=== PATIENT | female | born 1970 | race Caucasian/White ===

== ENCOUNTER 2021-02-20 10:28 | Inpatient (IN) | payer MEDICAID ==
[~2021-02-20] VITALS: Ht 160 cm; Wt 61.2 kg
--- NOTE | 2021-02-20 10:40 | NUR ---
[id number] HOME C/O LOWER BACK PAIN X 3 DAYS S/P LIFTING GROCERIES. PATIENT A/OX4, BREATHING EVEN AND UNLABORED, LYING FLAT IN BED. PATIENT C/O NOT ABLE TO MOVE HER BLE.
[2021-02-20] MEDS ORDERED: ONDANSETRON HCL/PF 4 MG/2 ML VIAL ONE (10:46)
[2021-02-20] MEDS ORDERED: KETOROLAC TROMETHAMINE 15 MG/ML VIAL ONE (10:46)
[2021-02-20] MEDS ORDERED: DEXAMETHASONE SOD PHOSPHATE 10 MG/ML VIAL ONE (10:46)
[2021-02-20] MEDS ORDERED: MORPHINE SULFATE INJ 2 MG/ML DISP.SYRIN ONE (10:47)
[2021-02-20] MEDS ORDERED: KETOROLAC TROMETHAMINE INJ 30 MG/ML VIAL IV ONE (11:00)
[2021-02-20] MEDS ORDERED: MORPHINE SULFATE INJ 2 MG/ML DISP.SYRIN IV ONE (11:00)
[2021-02-20] MEDS ORDERED: ONDANSETRON HCL/PF - ER 4 MG/2 ML VIAL IV ONE (11:00)
[2021-02-20] MEDS ORDERED: DEXAMETHASONE SOD PHOSPHATE 10 MG/ML VIAL IV ONE (11:00)
--- NOTE | 2021-02-20 11:00 | NUR ---
PATIENT ASLEEP, RESTING IN BED.
--- NOTE | 2021-02-20 12:33 | NUR ---
PATIENT IS ABLE TO MOVE HER BLE, HOWEVER WHEN ASKED TO SIT UP FROM BED, PATIENT STS SHE COULDNT DUE TO PAIN. INFORMED DR. DEL TORO.
[2021-02-20] MEDS ORDERED: ACETAMINOPHEN ES 500 MG TABLET ONE (12:40)
--- NOTE | 2021-02-20 12:57 | NUR ---
COVID SWAB SENT.
[2021-02-20] MEDS ORDERED: ACETAMINOPHEN ES 500 MG TABLET PO ONE (13:00)
--- NOTE | 2021-02-20 13:30 | NUR ---
negative covid per lab
--- NOTE | 2021-02-20 13:30 | NUR ---
CALLED NURSING SUP FOR M/S BED.
--- NOTE | 2021-02-20 13:40 | NUR ---
wool and pelt grader at bedside for xray.
--- NOTE | 2021-02-20 14:15 | NUR ---
room 309-1
--- NOTE | 2021-02-20 14:24 | NUR ---
REPORT GIVEN TO IVIS CRAIG FOR ROCKY.
--- NOTE | 2021-02-20 15:35 | NUR ---
MS METALSMITH HELPER NOTE RECEIVED PATIENT VIA Tile[employer]. PATIENT IS A/O X4. PATIENT IS BREATHING EVENLY AND NONLABORED, STABLE ON ROOM AIR. PATIENT'S VITALS ARE BP 102/50 HR 68, TEMP 97.6, RR 18 O2 SAT @ 100. PATIENT HAS IV ACCESS ON THE LAC #20 GAUGE. PATIENT'S SKIN IS WARM CLEAN AND DRY. PATIENT HAS NO WEAKNESS NOTED IN THE UPPER AND LOWER EXTREMITY, JUST SEVERE BACK PAIN AT THIS TIME. WILL NOTIFY MD. PATIENT WAS ORIENTED TO THE ROOM AND HOW TO USE THE CALL LIGHT. SAFETY MEASURES ARE IN PLACE, BED LOW LOCKED, CALL LIGHT WITHIN REACH. WILL CONTINUE TO MONITOR.
[2021-02-20] MEDS ORDERED: ACETAMINOPHEN 325 MG TABLET PO PRN (16:00)
[2021-02-20] MEDS ORDERED: MORPHINE SULFATE INJ 2 MG/ML DISP.SYRIN IV PRN (16:00)
[2021-02-20] MEDS ORDERED: MAG HYDROX/AL HYDROX/SIMETH 30 ML UDC PO PRN (16:00)
[2021-02-20] MEDS ORDERED: ONDANSETRON HCL/PF 4 MG/2 ML VIAL IVP PRN (16:00)
[2021-02-20] MEDS ORDERED: MAGNESIUM HYDROXIDE 30 ML UDC PO PRN (16:00)
[2021-02-20] MEDS ORDERED: Z GUARD REMEDY 2 OZ OINT TP PRN (16:00)
[2021-02-20] MEDS ORDERED: ZOLPIDEM TARTRATE 5 MG TABLET PO PRN (16:00)
--- NOTE | 2021-02-20 18:45 | NUR ---
RN NOTE PATIENT COMPLAINED OF BACK PAIN 02/21. PATIENT ASKED FOR PRN PAIN MEDICATION. WILL GIVEN PAIN MEDICATION ORDERED.
[2021-02-20] MEDS: HYDROCODONE/APAP 5/325MG TABLET PO PRN (18:49)
--- NOTE | 2021-02-20 18:59 | NUR ---
MS RN CLOSING NOTE PATIENT RESTING IN BED. PATIENT IS A/O X4. PATIENT IS BREATHING EVENLY AND NONLABORED, STABLE ON ROOM AIR. PATIENT HAS IV ACCESS ON THE LAC #20 GAUGE. PATIENT'S SKIN IS WARM CLEAN AND DRY. PATIENT COMPLAINS OF SOME BACK PAIN, LAST PAIN MEDICATION GIVEN @ 1845, NORCO. SAFETY MEASURES ARE IN PLACE, BED LOW LOCKED, CALL LIGHT WITHIN REACH. WILL ENDORSE TO ONCOMING SHIFT
--- NOTE | 2021-02-20 19:43 | NUR ---
MS/RN OPENING NOTE RECEIVED PATIENT RESTING IN BED. AWAKE, ALERT AND ORIENTED X 4. ABLE TO MAKE NEEDS KNOWN. NO COMPLAINTS OF PAIN AT THIS TIME. CONTINUES ON ROOM AIR WITH NO S/SX OF RESPIRATORY DISTRESS NOTED. IV ACCESS TO LEFT AC #20G INTACT, PATENT AND SALINE LOCKED. CALL LIGHT WITHIN REACH. ASPIRATION, FALL AND SAFETY PRECAUTIONS MAINTAINED. WILL CONTINUE TO MONITOR.
[2021-02-20 20:00] VITALS: BP 116/47
--- NOTE | 2021-02-20 20:12 | NUR ---
MS/RN NOTE PATIENT WITH C/O BURNING WHEN URINATING. NOTIFIED HEAD OF RESEARCH & INSIGHTS MD WEEKS WITH NEW ORDER FOR U/A AND U/C VIA CLEAN CATCH. ORDERS INPUTTED AND CARRIED OUT.
--- NOTE | 2021-02-20 22:00 | NUR ---
MS/RN NOTE URINE COLLECTED VIA CLEAN CATCH AND SENT TO LAB.
[2021-02-21 01:05] LABS: BILIRUBIN,URINE NEGATIVE (NEGATIVE); COLOR,URINE YELLOW (YELLOW); LEUKOCYTE ESTERASE ,URINE NEGATIVE (NEGATIVE); NITRITE, URINE NEGATIVE (NEGATIVE); PH,URINE 5.5 (5.0-8.0); PROTEIN,URINE NEGATIVE (NEGATIVE); UGLUCOSE >=1000 mg/dL (NEGATIVE); UROBILINOGEN,URINE 0.2 EU/dL (0.2)
[2021-02-21 01:19] LABS: BACTERIA,URINE None seen /HPF (None Seen); RBC,URINE 0-2 /HPF (0-2); WBC,URINE 0-2 /HPF (0-3)
[2021-02-21 01:20] LABS: SQUAMOUS EPITHELIAL CELL,UR Moderate /HPF (None Seen); URIC ACID CRYSTALS,URINE Many /HPF (None Seen); URINE AMORPHOUS URATE Many /HPF (None Seen)
--- NOTE | 2021-02-21 06:00 | NUR ---
MS/RN CLOSING NOTE PATIENT CURRENTLY SLEEPING IN BED. ALERT AND ORIENTED X 4. ABLE TO MAKE NEEDS KNOWN. NO COMPLAINTS OF PAIN AT THIS TIME. CONTINUES ON ROOM AIR WITH NO S/SX OF RESPIRATORY DISTRESS NOTED. IV ACCESS TO LEFT AC #20G INTACT, PATENT AND SALINE LOCKED. CALL LIGHT WITHIN REACH. ASPIRATION, FALL AND SAFETY PRECAUTIONS MAINTAINED. WILL ENDORSE PLAN OF CARE TO ONCOMING SHIFT.
[2021-02-21 06:01] LABS: BASOPHILS % (AUTO) 0.2 % (0.0-2.0); EOSINOPHILS % (AUTO) 0.1 % (0.0-6.0); HEMATOCRIT 41 % (33-45); HEMOGLOBIN 12.9 g/dL (11.5-14.8); LYMPHOCYTES # (AUTO) 1.5 /CMM (0.8-4.8); LYMPHOCYTES % (AUTO) 10.6 % (20.0-44.0); MEAN CORPUSCULAR HGB CONC 32 g/dl (31.0-36.0); MEAN CORPUSCULAR VOLUME 74 fL (82-100); MONOCYTES # (AUTO) 0.9 /CMM (0.1-1.30); MONOCYTES % (AUTO) 6.4 % (2.0-12.0); NEUTROPHILS # (AUTO) 11.6 /CMM (1.8-8.9); NEUTROPHILS % (AUTO) 82.7 % (43.0-81.0); PLATELET COUNT (AUTO) 263 /CMM (150-450); RED BLOOD CELL COUNT(AUTO) 5.47 MIL/uL (4.0-5.2)
[2021-02-21 06:25] LABS: CALCIUM, SERUM 9.2 mg/dL (8.5-10.1); CREATININE 0.4 mg/dL (0.6-1.3); PHOSPHORUS 3.6 mg/dL (2.5-4.9); POTASSIUM 4.3 mmol/L (3.5-5.1)
--- NOTE | 2021-02-21 07:10 | NUR ---
MS RN OPENING NOTE PATIENT ON BED AWAKE, ALERT AND ORIENTED X 4. PATIENT WITH REGULAR AND UNLABORED BREATHING, WITH NO SIGNS OF DISTRESS. ON MODERATE TO HIGH BACK REST. PATIENT WITH IV ACCESS ON THE LEFT AC G#20 ON SALINE LOCK, PATENT AND INTACT. PATIENT AWAITING DR. CHO. FOR PAIN MANAGEMENT AND FOR PT EVALUATION. COMFORT MEASURES PROVIDED. NO COMPLAIN OF PAIN OR DISCOMFORT AT THIS TIME. SAFETY PRECAUTIONS MAINTAINED WITH BED LOCKED AND AT LOWEST POSITION. CALL LIGHT WITHIN REACH AT ALL TIMES. WILL CONTINUE TO MONITOR PATIENT.
[2021-02-21 08:00] VITALS: BP 110/54
[2021-02-21] MEDS: HYDROCODONE/APAP 5/325MG TABLET PO PRN (08:14)
--- NOTE | 2021-02-21 08:14 | NUR ---
MS RN NOTE PATIENT COMPLAINED OF ACHING BACK PAIN, WITH PAIN LEVEL OF 7/10. WITH PRN MEDICATION OF NORCO. PATIENT REQUESTED FOR PAIN MEDICATION NORCO. HEALTH TEACHING DONE REGARDING PAIN MEDICATION AND MANAGEMENT. ENCOURAGED TO DO DEEP BREATHIGN EXERCISES. CHANGED POSITION FOR COMFORT AND TELEVISION TURNED ON. WILL CONTINUE TO MONITOR PATIENT.
--- NOTE | 2021-02-21 08:44 | NUR ---
MS RN NOTE PATIENT REASSESSED FOR PAIN AFTER MEDICATION MANAGEMENT. PATIENT VERBALIZED THAT HER PAIN IS NOW DOWN TO 2/10. WILL CONTINUE TO MONITOR PATIENT.
[2021-02-21] MEDS ORDERED: HYDROCODONE/APAP 10/325MG TABLET PO PRN (12:00)
[2021-02-21] MEDS: METHOCARBAMOL (500MG) 500 MG TABLET PO SCH ×2 (13:02→20:03)
[2021-02-21] MEDS: KETOROLAC TROMETHAMINE INJ 30 MG/ML VIAL IV SCH ×2 (13:04→20:11)
[2021-02-21 16:00] VITALS: BP 120/59
--- NOTE | 2021-02-21 18:55 | NUR ---
MS RN CLOSING NOTE PATIENT ON BED AWAKE, ALERT AND ORIENTED X 4. PATIENT WITH REGULAR AND UNLABORED BREATHING, WITH NO SIGNS OF DISTRESS. ON MODERATE TO HIGH BACK REST. PATIENT WITH IV ACCESS ON THE LEFT AC G#20 ON SALINE LOCK, PATENT AND INTACT. COMFORT MEASURES PROVIDED. NO COMPLAIN OF PAIN OR DISCOMFORT AT THIS TIME. SAFETY PRECAUTIONS MAINTAINED WITH BED LOCKED AND AT LOWEST POSITION. CALL LIGHT WITHIN REACH AT ALL TIMES. WILL ENDORSE TO NEXT SHIFT FOR CONTINUITY OF CARE.
--- NOTE | 2021-02-21 19:30 | NUR ---
RN OPENING NOTES Patient was seen awake resting in bed. Patient's alert and oriented x4. Patient's on room air with no respiratory distress noted. Patient has an IV access on her LAC gauge #20, which is intact and patent. Patient's noted with no signs and symptoms of acute distress. Safety measures are in place: Bed alarm on, bed locked, side rails up x3, and call light is within easy reach of the patient. Will continue to monitor the patient
[2021-02-21 20:00] VITALS: BP 117/58
--- NOTE | 2021-02-21 20:30 | NUR ---
RN NOTES PATIENT C/O NO BOWEL MOVEMENT IN 2 DAYS AND REQUESTED FOR A STOOL SOFTENER. DR. WEEKS WAS MADE AWARE. NO NEW ORDERS WERE GIVEN. PATIENT WAS GIVEN PRUNE JUICE TO HELP RELIEVE CONSTIPATION. WILL CONTINUE TO MONITOR THE PATIENT.
[2021-02-22] MEDS: METHOCARBAMOL (500MG) 500 MG TABLET PO SCH ×2 (03:40→11:19)
[2021-02-22] MEDS: KETOROLAC TROMETHAMINE INJ 30 MG/ML VIAL IV SCH ×2 (03:43→11:19)
[2021-02-22 05:56] LABS: BASOPHILS # (AUTO) 0.1 /CMM (0.0-0.2); BASOPHILS % (AUTO) 0.6 % (0.0-2.0); EOSINOPHILS % (AUTO) 3.1 % (0.0-6.0); HEMATOCRIT 38 % (33-45); HEMOGLOBIN 12.1 g/dL (11.5-14.8); MEAN CORPUSCULAR HGB CONC 32 g/dl (31.0-36.0); MEAN CORPUSCULAR VOLUME 74 fL (82-100); MONOCYTES # (AUTO) 0.8 /CMM (0.1-1.30); MONOCYTES % (AUTO) 7.3 % (2.0-12.0); NEUTROPHILS # (AUTO) 6.6 /CMM (1.8-8.9); PLATELET COUNT (AUTO) 235 /CMM (150-450); RED BLOOD CELL COUNT(AUTO) 5.18 MIL/uL (4.0-5.2); WHITE BLOOD COUNT (AUTO) 10.8 K/uL (4.3-11.0)
[2021-02-22 06:59] LABS: CALCIUM, SERUM 8.2 mg/dL (8.5-10.1); CREATININE 0.5 mg/dL (0.6-1.3); MAGNESIUM 2.1 mg/dL (1.8-2.4); PHOSPHORUS 2.9 mg/dL (2.5-4.9); POTASSIUM 4.1 mmol/L (3.5-5.1)
--- NOTE | 2021-02-22 07:17 | NUR ---
RN CLOSING NOTES Patient was last seen sleeping in bed. Patient's alert and oriented x4. Patient's on room air with no respiratory distress noted. Patient has an IV access on her LAC gauge #20, which is intact and patent. Patient's noted with no signs and symptoms of acute distress. Safety measures are in place: Bed alarm on, bed locked, side rails up x3, and call light is within easy reach of the patient. Endorsed care to the day shift nurse.
--- NOTE | 2021-02-22 07:23 | NUR ---
RN NOTES PATIENT SLEEPING IN BED, ABLE TO BE AWAKENED. A/O X4, CZECH-SPEAKING, UNDERSTANDS TURKISH AND ABLE TO MAKE NEEDS KNOWN. BREATHING EVEN AND UNLABORED, TOLERATING ROOM AIR, NOT IN ACUTE DISTRESS. IV LINE ON LAC #20 INTACT AND PATENT. SAFETY MEASURES IN PLACE. WILL CONTINUE TO MONITOR.
[2021-02-22 08:00] VITALS: BP 114/48
--- NOTE | 2021-02-22 08:11 | NUR ---
RN NOTES PATIENT SEEN EATING BREAKFAST AT THIS TIME; NO COMPLAINT OF PAIN.
--- NOTE | 2021-02-22 10:31 | NUR ---
RN NOTES PATIENT WAS SEEN BY DR. GARCIA TODAY, FOR POSSIBLE DISCHARGE TO HOME. ASKED PATIENT IF SHE HAS PAIN AT THE MOMENT; PATIENT STATED THAT SHE HAS SOME BACK PAIN BUT IS TOLERABLE AT THIS TIME, OKAY TO TAKE PAIN MEDICATION LATER BECAUSE IT MIGHT UPSET HER STOMACH. PATIENT RECOMMENDED TO DO BED MOBILITY WHEN IN BED AND TO WATCH TV/CELLPHONE FOR NON-PHARMACOLOGIC PAIN MGT, VERBALIZED UNDERSTANDING AND APPRECIATIVE. WILL CONTINUE TO MONITOR.
[2021-02-22] MEDS: HYDROCODONE/APAP 5/325MG TABLET PO PRN (15:50)
[2021-02-22 16:00] VITALS: BP 127/45
--- NOTE | 2021-02-22 17:43 | NUR ---
RN NOTES SPOKE W/ PATIENT'S SON, THEODORE, AND INFORMED ABOUT PATIENT'S DISCHARGE TODAY. DISCHARGE INSTRUCTIONS AND EDUCATION PROVIDED TO SON VIA THE PHONE AND TO THE PATIENT, IN PERSON. PATIENT AND SON VERBALIZED UNDERSTANDING ABOUT POST DISCHARGE PLAN FOR HOME HEALTH FOLLOW-UP W/ PT AND FOLLOW-UP W/ PATIENT'S PRIMARY CARE PROVIDER FOR LUMBAR-SPINE MRI; PER PATIENT, SHE ALREADY HAS AN APPT SET-UP W/ HER DOCTOR ON THURSDAY. CD IMAGE AND PRESCRIPTION PLACED INSIDE PATIENT'S DISCHARGE FOLDER. INSTRUCTIONS AND BELONGINGS LIST FORMS SIGNED BY PATIENT. PER SON, HE WILL BE ABLE TO MANAGER MEDIA RELATIONS PATIENT IN ABOUT AN HOUR AND A HALF TO TWO HOURS. CHARGE NURSE MADE AWARE. PATIENT HAS NO SKIN ISSUES. WILL ENDORSE TO MASCARA MOLDER RN IN CASE PATIENT GETS PICKED UP AT NIGHT.
[2021-02-22 19:32] VITALS: BP 134/57
--- NOTE | 2021-02-22 19:54 | NUR ---
RN NOTES IV LINE AND NAME ARMBAND REMOVED. PATIENT ACCOMPANIED TO THE LOBBY VIA WHEELCHAIR AND PICKED UP BY SON VIA PRIVATE CAR.
== END 2021-02-22 19:45 | disposition home health service (06) | DRG 347 ==
LOC: ER 10:44 → MED 14:37
PROVIDERS: ADMIT Student in an Organized Health Care Education/Training Program; ATTEND Student in an Organized Health Care Education/Training Program
DX: M47.26 Other spondylosis with radiculopathy, lumbar region (principal); D25.9 Leiomyoma of uterus, unspecified; D72.829 Elevated white blood cell count, unspecified; Z20.822 Contact with and (suspected) exposure to COVID-19; Z91.018 Allergy to other foods; M51.16 Intervertebral disc disorders with radiculopathy, lumbar region; M62.830 Muscle spasm of back; G89.29 Other chronic pain
CPT/HCPCS: 36415; 72110-TC; 80048-TC; 81001; 83735-TC; 84100-TC; 84703-TC; 85025-TC; 87081-TC; 87086-TC; 97112-TC; 97116-TC; 97530-TC; C9803; G0378; J1100; J1885; J2270; J2405